=== PATIENT | female | born 1980 | race Caucasian/White ===

== ENCOUNTER → 2019-10-29 09:30 | Outpatient (CLI) | payer OTHER, SELFPAY ==
--- NOTE | 2019-10-29 09:34 | DI.MG.S_ITS ---
BILATERAL DIGITAL SCREENING MAMMOGRAM 3D/2D WITH CAD: 10/29/2019 CLINICAL: Baseline exam. Routine screening. Family history of breast cancer. No prior exams were available for comparison. The tissue of both breasts is heterogeneously dense. This may lower the sensitivity of mammography. Current study was also evaluated with a Computer Aided Detection (CAD) system. There are two round asymmetries in the left breast middle depth central to the nipple seen on the mediolateral oblique view only. No other significant masses, calcifications, or other findings are seen in either breast. IMPRESSION: INCOMPLETE: NEEDS ADDITIONAL IMAGING EVALUATION The two round asymmetries in the left breast are indeterminate. A diagnostic mammogram and ultrasound is recommended. This exam was interpreted at Station ID: [id number]. NOTE: For mammograms, a report in lay terms will be sent to the patient. Approximately 15% of breast malignancies will not be visualized mammographically. In the management of a palpable breast mass, a negative mammogram must not discourage biopsy of a clinically suspicious lesion. Electronically Signed By: Suze garcia/:10/29/2019 10:11:19 letter sent: Additional Imaging Needed ACR BI-RADS Category 0: Incomplete 3340F
== END ==
PROVIDERS: Family Provider Family Medicine; PCP Family Medicine; Referring Provider Family Medicine; Visit Provider Family Medicine
DX: Z13.21 Encounter for screening for nutritional disorder (principal); Z80.3 Family history of malignant neoplasm of breast
CPT/HCPCS: 77063; 77067

== ENCOUNTER → 2019-11-15 10:13 | Outpatient (CLI) | payer OTHER, SELFPAY ==
--- NOTE | 2019-11-15 | DI.MG.S_ITS ---
UNILATERAL LEFT DIGITAL DIAGNOSTIC MAMMOGRAM 3D/2D WITH ADDITIONAL VIEWS: 11/15/2019 CLINICAL: Additional evaluation requested from prior study. Comparison is made to exam dated: 10/29/2019 mammogram - [facility]. The tissue of left breast is heterogeneously dense. This may lower the sensitivity of mammography. The 2 oval asymmetries with indistinct margins in the left breast middle depth central to the nipple seen on the mediolateral oblique view only are not seen on additional views. No other significant masses or calcifications are seen in the breast. IMPRESSION: There is no mammographic evidence of malignancy. A 1 year screening mammogram is recommended. This exam was interpreted at Station ID: [id number]. NOTE: For mammograms, a report in lay terms will be sent to the patient. Approximately 15% of breast malignancies will not be visualized mammographically. In the management of a palpable breast mass, a negative mammogram must not discourage biopsy of a clinically suspicious lesion. Electronically Signed By: John Bailey M.D. ddp/:11/15/2019 10:55:09 letter sent: Normal Exam ACR BI-RADS Category 2: Benign Finding(s) 3342F
== END ==
PROVIDERS: Family Provider Family Medicine; PCP Family Medicine; Referring Provider Family Medicine; Visit Provider Family Medicine
DX: R92.8 Other abnormal and inconclusive findings on diagnostic imaging of breast (principal)
CPT/HCPCS: 77065; G0279

== ENCOUNTER → 2020-02-13 12:13 | Outpatient (CLI) | payer OTHER, SELFPAY ==
--- NOTE | 2020-02-13 | DI.CT.S_ITS ---
PROCEDURE: CT SINUS SCREEN WO CON INDICATIONS: Chronic sinusitis TECHNIQUE: Noncontrast 3.0 mm axial images acquired from the frontal sinuses to the mid-sella, with coronal and sagittal reformats. For radiation dose reduction, the following was used: automated exposure control, adjustment of mA and/or kV according to patient size. COMPARISON: None. FINDINGS: Image quality: Excellent. Maxillary Sinuses: No bony remodeling or destruction. Sinuses are clear. Ethmoid Air Cells: No bony remodeling or destruction. Sinuses are clear. Sphenoid Sinuses: No bony remodeling or destruction. Sinuses are clear. Frontal Sinuses: No bony remodeling or destruction. Sinuses are clear. Ostiomeatal Complexes: Ostiomeatal complexes are patent, yet they are constitutionally narrowed. No Jennyfer cells. Miscellaneous: Visualized intra-orbital contents are normal. No logan bullosa or paradoxical turbinate curvature. There is minimal S-shaped nasal septal deviation. IMPRESSION: No significant active paranasal sinus disease is seen. No bony changes are seen to suggest chronic sinusitis. Constitutionally narrowed ostiomeatal complexes. Minimal S-shaped nasal septal deviation. Dictated by: Delonte Alvarez M.D. on 02/13/2020 at 12:15 Approved by: Delonte Alvarez M.D. on 02/13/2020 at 12:16
== END ==
PROVIDERS: Family Provider Family Medicine; PCP Family Medicine; Referring Provider Family Medicine; Visit Provider Family Medicine
DX: J32.9 Chronic sinusitis, unspecified (principal)
CPT/HCPCS: 70486

== ENCOUNTER → 2020-03-12 17:59 | Outpatient (CLI) | payer OTHER, SELFPAY ==
--- NOTE | 2020-03-12 18:01 | DI.MRI.S_ITS ---
PROCEDURE: MR HEAD/BRAIN WO CON INDICATIONS: HEADACHE TECHNIQUE: Noncontrast axial T1 spin echo, axial T2 fast spin echo, sagittal and axial FLAIR, coronal T2 fast spin echo, axial gradient echo, axial diffusion and ADC through the brain. COMPARISON: None. FINDINGS: Image quality: Excellent. CSF Spaces: Basal cisterns are patent. No extra-axial fluid collections. Ventricles are normal in size and shape. Brain: No intracranial masses or hemorrhage. Lowery/white matter interface is normal. Brainstem appears normal. Diffusion-weighted images demonstrate no acute ischemic insult. No chronic ischemic insults. Normal intravascular flow voids are present. Skull and face: Calvarium has normal marrow signal. Orbits appear normal. Sinuses: Sinuses and mastoids are clear. IMPRESSION: 1. No intracranial disease process. 2. No abnormal intracranial mass or mass effect. 3. No abnormal intracranial signal. Dictated by: Sabi Rivero MD, PhD on 03/13/2020 at 12:59 Approved by: Sabi Rivero MD, PhD on 03/13/2020 at 13:01
== END ==
PROVIDERS: Family Provider Family Medicine; PCP Family Medicine; Referring Provider Psychiatry & Neurology Neurology; Visit Provider Psychiatry & Neurology Neurology
DX: R51 Headache (principal)
CPT/HCPCS: 70551

== ENCOUNTER 2020-03-12 18:57 | Emergency (ER) | payer OTHER, SELFPAY ==
[2020-03-12 19:04] VITALS: BP 109/69; PULSE 79; RESP 18; TEMP 36.2; O2SAT 98; BMI 23.0
--- NOTE | 2020-03-12 19:25 | ED.HA ---
HPI - Headache General Chief Complaint: Headache Stated Complaint: RIGHT SIDE REALLY BAD HEADACHE Time Seen by Provider: 03/12/20 19:02 Mode of arrival: Ambulatory Limitations: no limitations Related Data Home Medications Medication Instructions Recorded Confirmed ibuprofen 800 mg PO TID #0 04/14/11 Allergies Allergy/AdvReac Type Severity Reaction Status Date / Time No Known Allergies Allergy Uncoded 12/09/17 11:53 Patient History Social History Smoking Status: Never smoker Smoking Status: Never smoker alcohol intake frequency: a few times a week Substance Use Type: does not use Exam Initial Vital Signs Initial Vital Signs: Vital Signs Temperature 97.2 F L 03/12/20 19:04 Pulse Rate 79 03/12/20 19:04 Respiratory Rate 18 03/12/20 19:04 Blood Pressure 109/69 03/12/20 19:04 Pulse Oximetry 98 03/12/20 19:04 Course Vital Signs Vital signs: Vital Signs - 8 hr 03/12/20 19:04 Temperature 97.2 F L Pulse Rate 79 Respiratory Rate 18 Blood Pressure 109/69 Pulse Oximetry 98 Discharge Plan Departure Prescriptions: No Action ibuprofen 800 MG tablet 800 mg PO TID Qty: 0 RF: 0
[2020-03-12] MEDS: SODIUM CHLORIDE 0.9% 1,000 ML 1000 ML IV (19:59)
[2020-03-12] MEDS: METOCLOPRAMIDE 10 MG/2 ML INJ IV (20:00)
[2020-03-12] MEDS: KETOROLAC 60 MG/2 ML VIAL 30 MG IV (20:00)
[2020-03-12] MEDS: diphenhydrAMINE 50 MG/ML VIAL IV (20:00)
--- NOTE | 2020-03-12 20:16 | ED.HA ---
HPI - Headache <MADELINE Yo - Last Filed: 03/12/20 21:03> General Chief Complaint: Headache Stated Complaint: RIGHT SIDE REALLY BAD HEADACHE Time Seen by Provider: 03/12/20 19:02 Source: patient Mode of arrival: Ambulatory Limitations: no limitations History of Present Illness HPI Narrative: The patient is a 40-year-old female nonsmoker with history of migraines who presents with a chief complaint of right-sided headache. She states this is been waxing and waning over the past several days, photophobia, phonophobia with nausea but no vomiting. She has not taken anything to feel better. She does note that she had a MRI of her brain here today. She was given a pack of steroids for headache, which she did not start. She notes that she had no thunderclap sensation, headache onset was gradual. No fevers. She states that this is a normal headache for her. She denies any confusion, visual issues etcetera Related Data Home Medications Medication Instructions Recorded Confirmed ibuprofen 800 mg PO TID #0 04/14/11 Allergies Allergy/AdvReac Type Severity Reaction Status Date / Time No Known Allergies Allergy Uncoded 12/09/17 11:53 Review of Systems <MADELINE Yo - Last Filed: 03/12/20 21:03> Review of Systems Narrative: GENERAL: Denies chills, fatigue, malaise, fever, sweats. HEENT: Denies sinus pain, ear pain, sore throat, difficulty swallowing, dizziness. RESPIRATORY: Denies dyspnea, cough, wheezing, hemoptysis, sputum. CARDIOVASCULAR: Denies chest pain, palpitations, orthopnea, edema, GASTROINTESTINAL: Denies nausea, vomiting, abdominal pain, diarrhea, constipation, melena. : Denies dysuria, frequency, incontinence, hematuria, urinary retention. MUSCULOSKELETAL: denies weakness, joint pain, or bony pain SKIN: Denies rash, skin lesions, or other NEUROLOGIC: See HPI PSYCHIATRIC: No concerning psychosocial issues. 12 point review of systems is negative except for those stated above Patient History <MADELINE Yo - Last Filed: 03/12/20 21:03> Social History Smoking Status: Never smoker Smoking Status: Never smoker alcohol intake frequency: a few times a week Substance Use Type: does not use Exam <MADELINE Yo - Last Filed: 03/12/20 21:03> Narrative Exam Narrative: GENERAL: This is a well-nourished, well-developed patient, in no acute distress but appears uncomfortable HEAD: Atraumatic. Normocephalic. No temporal or scalp tenderness. EYES: Pupils equal round and reactive. Extraocular motions intact. No scleral icterus. No injection or drainage. ENT: Nose without bleeding, purulent drainage or septal hematoma. Throat without erythema, tonsillar hypertrophy or exudate. Uvula midline. Airway patent. NECK: Trachea midline. No JVD or lymphadenopathy. Supple, nontender, no meningeal signs. CARDIOVASCULAR: Regular rate and rhythm RESPIRATORY: Clear to auscultation. Breath sounds equal bilaterally. No wheezes, rales, or rhonchi. No cough. No increased respiratory effort. No accessory muscle use. GASTROINTESTINAL: Abdomen soft, non-tender, nondistended. No hepato-splenomegaly, or palpable masses. No guarding. Active bowel sounds all 4 quadrants EXTREMITIES: No clubbing, cyanosis, or edema. No joint tenderness, effusion, or edema noted. BACK: Nontender without deformity or crepitance. No flank tenderness. NEURO: AOx3. Denies visual deficit. Follows commands. Stable gait. Strength is equal upper and lower extremities bilaterally. Heel-nguyen test intact. Finger-nose test intact. SKIN: No rash or erythema on visible skin. Initial Vital Signs Initial Vital Signs: Vital Signs Temperature 97.2 F L 03/12/20 19:04 Pulse Rate 79 03/12/20 19:04 Respiratory Rate 18 03/12/20 19:04 Blood Pressure 109/69 03/12/20 19:04 Pulse Oximetry 98 03/12/20 19:04 <Jose Ramon Diez DO - Last Filed: 03/13/20 01:37> Initial Vital Signs Initial Vital Signs: Vital Signs Temperature 97.2 F L 03/12/20 19:04 Pulse Rate 79 03/12/20 19:04 Respiratory Rate 18 03/12/20 19:04 Blood Pressure 109/69 03/12/20 19:04 Pulse Oximetry 98 03/12/20 19:04 Scores <MADELINE Yo - Last Filed: 03/12/20 21:03> GCS [place] coma scale eye opening: Spontaneous [place] coma scale verbal response: Orientated Tesha coma scale motor response: Obey commands Tesha coma scale total score: 15 NIH Stroke Scale Level of Conciousness: Alert, keenly responsive Ask month/age: Answers both questions correctly. Open/close eyes, close hand: Performs both tasks correctly Best gaze horizontal: Normal Visual cui: No visual loss Facial palsy: Normal symetrical movement Left arm drift: No drift for full 10 sec Right arm drift: No drift for full 10 sec Left leg drift: No drift for full 10 sec Right leg drift: No drift for full 10 sec Limb ataxia: Absent Sensory on face/arms/legs: Normal, no sensory loss Best language: No aphasia, normal Dysarthria: Normal Extinction or inattention: No abnormality Total NIH Stroke scale score: 0 Course <JUAN ANTONIO Yo - Last Filed: 03/12/20 21:03> Orders Ordered: Discontinued Medications Diphenhydramine HCl (Benadryl) 50 mg IV NOW ONE Stop: 03/12/20 19:50 Last Admin: 03/12/20 20:00 Dose: 50 mg Documented by: CHARLY Sodium Chloride (Normal Saline 0.9%) 1,000 mls @ 1,000 mls/hr IV BOLUS ONE Stop: 03/12/20 20:48 Last Infusion: 03/12/20 21:10 Dose: 0 mls/hr Documented by: Admin: 03/12/20 19:59 Dose: 1,000 mls/hr Documented by: CHARLY Ketorolac Tromethamine (Toradol) 30 mg IV NOW ONE Stop: 03/12/20 19:50 Last Admin: 03/12/20 20:00 Dose: 30 mg Documented by: CHARLY Metoclopramide HCl (Reglan) 10 mg IV NOW ONE Stop: 03/12/20 19:50 Last Admin: 03/12/20 20:00 Dose: 10 mg Documented by: CHARLY Vital Signs Vital signs: Vital Signs - 8 hr 03/12/20 19:04 03/12/20 21:10 Temperature 97.2 F L Pulse Rate 79 78 Respiratory Rate 18 14 Blood Pressure 109/69 106/61 Pulse Oximetry 98 99 <Jose Ramon Diez DO - Last Filed: 03/13/20 01:37> Orders Ordered: Discontinued Medications Diphenhydramine HCl (Benadryl) 50 mg IV NOW ONE Stop: 03/12/20 19:50 Last Admin: 03/12/20 20:00 Dose: 50 mg Documented by: CHARLY Sodium Chloride (Normal Saline 0.9%) 1,000 mls @ 1,000 mls/hr IV BOLUS ONE Stop: 03/12/20 20:48 Last Infusion: 03/12/20 21:10 Dose: 0 mls/hr Documented by: Admin: 03/12/20 19:59 Dose: 1,000 mls/hr Documented by: CHARLY Ketorolac Tromethamine (Toradol) 30 mg IV NOW ONE Stop: 03/12/20 19:50 Last Admin: 03/12/20 20:00 Dose: 30 mg Documented by: CHARLY Metoclopramide HCl (Reglan) 10 mg IV NOW ONE Stop: 03/12/20 19:50 Last Admin: 03/12/20 20:00 Dose: 10 mg Documented by: CHARLY Vital Signs Vital signs: Vital Signs - 8 hr 03/12/20 19:04 03/12/20 21:10 Temperature 97.2 F L Pulse Rate 79 78 Respiratory Rate 18 14 Blood Pressure 109/69 106/61 Pulse Oximetry 98 99 MDM - Headache <MADELINE Yo - Last Filed: 03/12/20 21:03> Lab Data Labs: Point of Care Testing Test Results Negative Urine Dip Bedside Urine Glucose Negative Bedside Urine Bilirubin - Negative Bedside Urine Ketone +/- 5 Urine Specific [place] 1.025 Bedside Urine Occult Blood + Bedside Urine pH 6.0 Bedside Urine Protein - Negative Bedside Urine Urobilinogen - Negative Bedside Urine Nitrite - Negative Bedside Urine Leukocytes - Negative Esterase MDM Narrative Medical decision making narrative: The patient is a 40-year-old female with history of migraines who presents with a chief complaint of a right-sided headache that has been waxing waning for the past several days. The onset was gradual, no thunderclap sensation, no neurological changes. She feels much improved after the above-stated therapies request to go home and sleep. I discussed at length the importance of following up with primary care provider coming back to the emergency department for any acute concerns. Patient has no questions or concerns upon discharge and states understanding of return precautions as well as follow-up care. <Jose Ramon Diez DO - Last Filed: 03/13/20 01:37> Lab Data Labs: Point of Care Testing Test Results Negative Urine Dip Bedside Urine Glucose Negative Bedside Urine Bilirubin - Negative Bedside Urine Ketone +/- 5 Urine Specific [place] 1.025 Bedside Urine Occult Blood + Bedside Urine pH 6.0 Bedside Urine Protein - Negative Bedside Urine Urobilinogen - Negative Bedside Urine Nitrite - Negative Bedside Urine Leukocytes - Negative Esterase Discharge Plan Departure Patient Disposition: Home Clinical Impression: Headache Qualifiers: Headache type: unspecified Headache chronicity pattern: unspecified pattern Intractability: not intractable Qualified Code(s): R51 - Headache Discharge Date/Time: 03/12/20 21:19 Instructions: DI for Migraine, DI for Headache Activity Restrictions/Additional Instructions: Thank you for trusting us with your care today Please go home rest. Push fluids. Please follow-up with primary care provider in the next few days. Please come back to the emergency department for any acute concerns such as neurological changes etcetera Prescriptions: No Action ibuprofen 800 MG tablet 800 mg PO TID Qty: 0 RF: 0 Referrals: Joelle Patterson MD [Primary Care Provider] - <Jose Ramon Diez DO - Last Filed: 03/13/20 01:37> Cosign ED Attending Cosignature Attestation: I was immediately available in the department for consultation. This documentation has been reviewed and I agree with assessment and plan. Supervised by Jose Ramon Diez DO
[2020-03-12 21:10] VITALS: BP 106/61; PULSE 78; RESP 14; O2SAT 99
== END 2020-03-12 21:19 | disposition home or self-care (01) ==
PROVIDERS: Emergency Provider Nurse Practitioner Family; Family Provider Family Medicine; PCP Family Medicine
DX: R51 Headache (principal)
CPT/HCPCS: 36415; 70551; 81003; 81025; 96361; 96374; 96375; 99284; J1200; J1885; J2765

== ENCOUNTER → 2020-11-07 10:42 | Outpatient (CLI) | payer OTHER, SELFPAY ==
--- NOTE | 2020-11-07 10:45 | DI.MG.S_ITS ---
BILATERAL DIGITAL SCREENING MAMMOGRAM 3D/2D WITH CAD: 11/07/2020 CLINICAL: Routine screening. Family history of breast cancer. Comparison is made to exams dated: 11/15/2019 mammogram and 10/29/2019 mammogram - [facility]. The tissue of both breasts is heterogeneously dense. This may lower the sensitivity of mammography. Current study was also evaluated with a Computer Aided Detection (CAD) system. No significant masses, calcifications, or other findings are seen in either breast. There has been no significant interval change. IMPRESSION: NEGATIVE There is no mammographic evidence of malignancy. A 1 year screening mammogram is recommended. This exam was interpreted at Station ID: [id number]. NOTE: For mammograms, a report in lay terms will be sent to the patient. Approximately 15% of breast malignancies will not be visualized mammographically. In the management of a palpable breast mass, a negative mammogram must not discourage biopsy of a clinically suspicious lesion. Electronically Signed By: John castillo/jessica:11/07/2020 11:11:47 letter sent: Normal Exam ACR BI-RADS Category 1: Negative 3341F
== END ==
PROVIDERS: Family Provider Family Medicine; PCP Family Medicine; Referring Provider Family Medicine; Visit Provider Family Medicine
DX: Z12.31 Encounter for screening mammogram for malignant neoplasm of breast (principal); Z80.3 Family history of malignant neoplasm of breast
CPT/HCPCS: 77063; 77067

== ENCOUNTER → 2022-01-14 15:14 | Outpatient (CLI) | payer OTHER, SELFPAY ==
--- NOTE | 2022-01-14 | DI.MG.S_ITS ---
BILATERAL DIGITAL SCREENING MAMMOGRAM 3D/2D WITH CAD: 01/14/2022 CLINICAL: Routine screening. Family history of breast cancer. Comparison is made to exams dated: 11/07/2020 mammogram, 11/15/2019 mammogram, and 10/29/2019 mammogram - [facility]. The tissue of both breasts is heterogeneously dense. This may lower the sensitivity of mammography. Current study was also evaluated with a Computer Aided Detection (CAD) system. No significant masses, calcifications, or other findings are seen in either breast. There has been no significant interval change. IMPRESSION: NEGATIVE There is no mammographic evidence of malignancy. A 1 year screening mammogram is recommended. This exam was interpreted at Station ID: [id number]. NOTE: For mammograms, a report in lay terms will be sent to the patient. Approximately 15% of breast malignancies will not be visualized mammographically. In the management of a palpable breast mass, a negative mammogram must not discourage biopsy of a clinically suspicious lesion. Electronically Signed By: Russell almonte/jessica:01/15/2022 08:15:29 letter sent: Normal Exam ACR BI-RADS Category 1: Negative 3341F
== END ==
PROVIDERS: Family Provider Family Medicine; PCP Family Medicine; Referring Provider Family Medicine; Visit Provider Family Medicine
DX: Z12.31 Encounter for screening mammogram for malignant neoplasm of breast (principal); Z80.3 Family history of malignant neoplasm of breast
CPT/HCPCS: 77063; 77067

== ENCOUNTER → 2023-01-16 14:18 | Outpatient (CLI) | payer OTHER, SELFPAY ==
--- NOTE | 2023-01-16 | DI.MG.S_ITS ---
BILATERAL DIGITAL SCREENING MAMMOGRAM 3D/2D WITH CAD: 01/16/2023 CLINICAL: Routine screening. Family history of breast cancer. Comparison is made to exams dated: 01/14/2022 mammogram, 11/07/2020 mammogram, and 10/29/2019 mammogram - [facility]. Both breasts are heterogeneously dense, which may obscure small masses (category c / 51-75% glandular tissue). Current study was also evaluated with a Computer Aided Detection (CAD) system. No significant masses, calcifications, or other findings are seen in either breast. There has been no significant interval change. IMPRESSION: NEGATIVE There is no mammographic evidence of malignancy. A 1 year screening mammogram is recommended. Based on Tyrer-Cuzick model (a risk assessment model), the patient's lifetime risk is 25.9% and her 10 year risk is 4.9%. If a patient has an elevated risk, a more comprehensive evaluation should be considered and/or a referral to a genetic counselor. The [place] [employer], [place] [employer], and NCCN Guidelines advise the consideration of Breast MRI as an adjunct to screening mammography in patients whose Lifetime risk to develop breast cancer is 20% or higher. This exam was interpreted at Station ID: [id number]. NOTE: For mammograms, a report in lay terms will be sent to the patient. Approximately 15% of breast malignancies will not be visualized mammographically. In the management of a palpable breast mass, a negative mammogram must not discourage biopsy of a clinically suspicious lesion. Electronically Signed By: Valentin roberts/jessica:01/16/2023 15:04:25 letter sent: Normal Exam ACR BI-RADS Category 1: Negative 3341F
== END ==
PROVIDERS: Family Provider Family Medicine; PCP Family Medicine; Referring Provider Family Medicine; Visit Provider Family Medicine
DX: Z12.31 Encounter for screening mammogram for malignant neoplasm of breast (principal); Z80.3 Family history of malignant neoplasm of breast
CPT/HCPCS: 77063; 77067

== ENCOUNTER 2023-05-21 14:04 | Emergency (ER) | payer OTHER, SELFPAY ==
[2023-05-21 14:12] VITALS: BP 120/59; PULSE 77; RESP 16; TEMP 36.6; O2SAT 100; BMI 23.0
[2023-05-21 14:27] LABS: Pregnancy Test Urine Negative (Negative)
[2023-05-21 14:38] LABS: Appearance Urine UA CLEAR; Bacteria Urine Few (2-10); Color Urine UA ORANGE; Culture Indicated Urine Specimen Cultured; RBC Urine 10-30/HPF (0-5/HPF); Squamous Epithelial Cell Urine 0-1 /HPF (0-5/HPF); WBC Urine 5-10/HPF (0-5/HPF)
[2023-05-21 17:04] VITALS: BP 114/67; PULSE 77; RESP 16; TEMP 37.1; O2SAT 99
--- NOTE | 2023-05-21 17:12 | ED.FEMALEGU ---
HPI - Female Genitourinary <Joelle Frye PA-C - Last Filed: 05/21/23 19:18> General Chief complaint: Urogenital-Female Stated complaint: poss UTI going into kidneys Time Seen by Provider: 05/21/23 17:00 Source: patient Mode of arrival: Ambulatory History of Present Illness HPI Narrative: Patient is a 43-year-old female with several days of dysuria, frequency and urgency. Yesterday she developed low back pain. She has no fever or chills, she was nauseous and vomited once yesterday. She is been drinking a lot of water and taking puvr-jtc-[id number] pain medication for dysuria. She is not noticed any hematuria. She has a history of kidney stones 19 years ago and fairly frequent urinary tract infections. Related Data Home Medications Medication Instructions Recorded Confirmed ibuprofen 800 mg tablet 800 mg PO TID ##0 04/14/11 Previous Rx's Medication Instructions Recorded ciprofloxacin HCl 500 mg tablet 500 mg PO BID #14 tabs 05/21/23 Allergies Allergy/AdvReac Type Severity Reaction Status Date / Time No Known Allergies Allergy Verified 05/21/23 17:40 Review of Systems <Joelle Frye PA-C - Last Filed: 05/21/23 19:18> Review of Systems ROS Unobtainable: All systems reviewed & are unremarkable except as noted in HPI and below Patient History <Joelle Frye PA-C - Last Filed: 05/21/23 19:18> alcohol intake frequency: a few times a week Substance Use Type: does not use Exam <ALEA Muro Last Filed: 05/21/23 19:18> Narrative Exam Narrative: GENERAL: 43 year old patient appears stated age. Well-developed patient, in mild distress. NEURO: AOx3. HEAD: Atraumatic. Normocephalic. EYES: Pupils equal round and reactive. Extraocular motions intact. No scleral icterus. No injection or drainage. ENT: Nose without bleeding or purulent drainage. Airway patent. RESPIRATORY: No distress GASTROINTESTINAL: Abdomen soft, non-tender, nondistended. Positive bilateral CVA tenderness, right greater than left. EXTREMITIES: No edema or joint tenderness. SKIN: No rash or erythema of visible areas Initial Vital Signs Initial Vital Signs: Vital Signs Temperature 97.8 F 05/21/23 14:12 Pulse Rate 77 09/21/23 14:12 Respiratory Rate 16 05/21/23 14:12 Blood Pressure 120/59 L 05/21/23 14:12 Pulse Oximetry 100 05/21/23 14:12 Oxygen Delivery Method Room Air 05/21/23 14:12 <Feng Bowers MD - Last Filed: 06/05/23 08:40> Initial Vital Signs Initial Vital Signs: Vital Signs Temperature 97.8 F 05/21/23 14:12 Pulse Rate 77 05/21/23 14:12 Respiratory Rate 16 05/21/23 14:12 Blood Pressure 120/59 L 05/21/23 14:12 Pulse Oximetry 100 05/21/23 14:12 Oxygen Delivery Method Room Air 05/21/23 14:12 Course <Joelle Frye PA-C - Last Filed: 05/21/23 19:18> Course Course Narrative: I initially evaluated patient at which point she was a little uncomfortable but declined pain medication. She wanted antibiotics and to go home. Shortly after, nurse came to find me and said patient was in significant right flank pain. I went directly to the room at 1737 and found patient to be kneeling on the floor, crying. Decision made to alter plan of care; we will start an IV, check labs give pain medication and obtain CT scan to evaluate for kidney stone. Pain controlled with Toradol and hydromorphone. CT scan of abdomen pelvis with contrast completed, please see below Orders Ordered: Discontinued Medications Ceftriaxone Sodium (Ceftriaxone 2,000 Mg Vial) 1,000 mg IM NOW ONE Stop: 05/21/23 17:07 Last Admin: 05/21/23 17:35 Dose: 1,000 mg Documented By: ST Hydromorphone HCl (Hydromorphone 0.5 Mg Inj) 0.5 mg IV NOW ONE Stop: 05/21/23 17:40 Last Admin: 05/21/23 17:47 Dose: 0.5 mg Documented By: ST Ketorolac Tromethamine (Ketorolac 30 Mg/Ml Vial) 15 mg IV NOW ONE Stop: 05/21/23 17:36 Last Admin: 05/21/23 17:47 Dose: 15 mg Documented By: ST Lidocaine HCl (Lidocaine 1% (Pf) 5 Ml) 4.2 ml INJ NOW ONE Stop: 05/21/23 17:07 Last Admin: 05/21/23 17:36 Dose: Not Given Documented By: ST Ondansetron HCl (Ondansetron 4 Mg/2 Ml Inj) 4 mg IV NOW ONE Stop: 05/21/23 17:41 Last Admin: 05/21/23 17:47 Dose: 4 mg Documented By: ST Vital Signs Vital signs: Vital Signs - 8 hr 05/21/23 14:12 05/21/23 17:04 05/21/23 18:28 Temperature 97.8 F 98.7 F 97.7 F Pulse Rate 77 77 76 Respiratory Rate 16 16 18 Blood Pressure 120/59 L 114/67 109/53 L Pulse Oximetry 100 99 98 Oxygen Delivery Method Room Air Room Air Room Air 05/21/23 18:55 Temperature 98.2 F Pulse Rate 77 Respiratory Rate 17 Blood Pressure 95/52 L Pulse Oximetry 100 Oxygen Delivery Method Room Air <Feng Bowers MD - Last Filed: 06/05/23 08:40> Orders Ordered: Discontinued Medications Ceftriaxone Sodium (Ceftriaxone 2,000 Mg Vial) 1,000 mg IM NOW ONE Stop: 05/21/23 17:07 Last Admin: 05/21/23 17:35 Dose: 1,000 mg Documented By: Hydromorphone HCl (Hydromorphone 0.5 Mg Inj) 0.5 mg IV NOW ONE Stop: 05/21/23 17:40 Last Admin: 05/21/23 17:47 Dose: 0.5 mg Documented By: Ketorolac Tromethamine (Ketorolac 30 Mg/Ml Vial) 15 mg IV NOW ONE Stop: 05/21/23 17:36 Last Admin: 05/21/23 17:47 Dose: 15 mg Documented By: ST Lidocaine HCl (Lidocaine 1% (Pf) 5 Ml) 4.2 ml INJ NOW ONE Stop: 05/21/23 17:07 Last Admin: 05/21/23 17:36 Dose: Not Given Documented By: ST Ondansetron HCl (Ondansetron 4 Mg/2 Ml Inj) 4 mg IV NOW ONE Stop: 05/21/23 17:41 Last Admin: 05/21/23 17:47 Dose: 4 mg Documented By: ST Vital Signs Vital signs: Vital Signs - 8 hr 05/21/23 14:12 05/21/23 17:04 05/21/23 18:28 Temperature 97.8 F 98.7 F 97.7 F Pulse Rate 77 77 76 Respiratory Rate 16 16 18 Blood Pressure 120/59 L 114/67 109/53 L Pulse Oximetry 100 99 98 Oxygen Delivery Method Room Air Room Air Room Air 05/21/23 18:55 Temperature 98.2 F Pulse Rate 77 Respiratory Rate 17 Blood Pressure 95/52 L Pulse Oximetry 100 Oxygen Delivery Method Room Air MDM - Female Genitourinary <Joelle Frye PA-C - Last Filed: 05/21/23 19:18> Lab Data 05/21/23 17:54 05/21/23 17:54 Labs: Lab Results 05/21/23 05/21/23 Range/Units 14:12 17:54 WBC 16.9 H (4.5-11.0) X10^3/uL RBC 4.00 (4.0-5.2) X10^6/uL Hgb 12.0 (12.0-16.0) g/dL Hct 35.4 L (36-46) % MCV 88.4 (80-100) fL MCH 30.1 (26-34) PG MCHC 34.0 (30-36) % RDW 12.3 (11.6-14.8) % Plt Count 369 (150-400) X10^3/uL Neut % (Auto) 75.8 H (50-75) % Lymph % (Auto) 18.4 L (25-40) % [place] % (Auto) 4.8 (3-14) % Eos % (Auto) 0.4 L (2-4) % Baso % (Auto) 0.6 (0-2) % Neut # (Auto) 24775 H (9425-2632) /uL Lymph # (Auto) 3100 (4096-0172) /uL [place] # (Auto) 800 (0-900) /uL Eos # (Auto) 100 (0-450) /uL Baso # (Auto) 100 (0-100) /uL Sodium 135 L (137-145) mmol/L Potassium 3.8 (3.4-5.1) mmol/L Chloride 101 (98-107) mmol/L Carbon Dioxide 24 (22-32) mmol/L BUN 9 (7-17) mg/dL Creatinine 0.77 (0.52-1.04) mg/dL Estimated GFR > 60 (>60) mL/min BUN/Creatinine Ratio 11.7 (6-22) Glucose 110 H (70-100) mg/dL Calcium 9.8 (8.4-10.2) mg/dL Urine Color [place] Urine Appearance Clear Urine pH TNP Ur Specific [place] TNP Urine Protein TNP Urine Glucose (UA) TNP Urine Ketones TNP Urine Occult Blood TNP Urine Nitrate TNP Urine Bilirubin TNP Urine Urobilinogen TNP Ur Leukocyte Esterase TNP Urine RBC 10-30/hpf H (0-5/HPF) Urine WBC 5-10/hpf H (0-5/HPF) Ur Squamous Epith Cells 0-1 /hpf (0-5/HPF) Urine Bacteria Few (2-10) H (None) Ur Culture Indicated? Specimen cultured Micro UA Comment Urine Test Negative (Negative) Imaging Data CT scan - abdomen/pelvis: Radiologist's Impression: PROCEDURE:? CT ABDOMEN PELVIS W CON ? INDICATIONS:? flank pain ? TECHNIQUE:? After the administration of intravenous contrast, axial sections acquired from the lung bases to the pubic symphysis.? Coronal and sagittal reformats were performed.? For radiation dose reduction, the following was used:? automated exposure control, adjustment of mA and/or kV according to patient size.? ? COMPARISON:? None. ? FINDINGS:? Image quality:? Excellent.? ? Lung bases:? Unremarkable. Heart:? No significant findings. ? ABDOMEN: Liver:? Unremarkable.? ? Gallbladder:? Unremarkable.? ? Biliary ducts:? Unremarkable.? ? Pancreas:? Unremarkable.? ? Spleen:? Unremarkable.? ? Adrenal Glands:? Unremarkable.? ? Kidneys and Ureters:? There is mild dilatation and wall thickening of the right ureter.? The kidneys enhance symmetrically without evidence of kidney stone or hydronephrosis. ? Stomach and Bowel:? Stomach, small bowel loops, and colon are unremarkable.? Peritoneum:? No abnormal intraperitoneal fluid.? No free air.? ? Ventral Wall: ? No hernias.? Abdominal Nodes:? No retroperitoneal or mesenteric adenopathy by size criteria.? Vessels:? Aorta and inferior vena cava are normal in size.? ? PELVIS: Pelvic Organs:? Unremarkable.? ? Bladder:? Decompressed, limiting evaluation..? ? Pelvic Nodes: No enlarged lymph nodes.? Miscellaneous: No hernias are seen.? Possible trace pelvic fluid posterior to the uterus. ?? ? Bones:? Mild degenerative changes. ? ? IMPRESSION:? ? 1. Mild dilatation and wall thickening of the right ureter.? The urinary bladder is decompressed which limits evaluation.? Recommend correlation with urinalysis to exclude cystitis. 2. Possible trace pelvic fluid posterior to the uterus, may be physiologic. ? ? Dictated by: Wicho Montiel M.D. on 05/21/2023 at 18:42 ? ? Approved by: Wicho Montiel M.D. on 05/21/2023 at 18:47 ? MDM Narrative Medical decision making narrative: Multiple etiologies for patient's symptoms considered including, but not limited to: UTI, pyelonephritis, kidney stone, cholecystitis. UA shows evidence of infection but is difficult to interpret given use of pmxa-lbm-ctwczrt pain medication for dysuria. Patient has significant CVA tenderness which is concerning for pyelonephritis. No fever or tachycardia to suggest sepsis. After episode of significant pain, CT abd/pelvis obtained to evaluate for stone. No stone seen. We will continue original plan to treat as pyelonephritis with 1 g IM ceftriaxone and 7 days of ciprofloxacin, chosen for broad-spectrum in the setting of Bactrim not covered by her insurance. No IV fluid indicated today as patient has been tolerating p.o. fluids and has been drinking plenty of water. Patient feels better after pain meds and will a call a ride home. <Feng Bowers MD - Last Filed: 06/05/23 08:40> Lab Data Labs: Lab Results 05/21/23 05/21/23 Range/Units 14:12 17:54 WBC 16.9 H (4.5-11.0) X10^3/uL RBC 4.00 (4.0-5.2) X10^6/uL Hgb 12.0 (12.0-16.0) g/dL Hct 35.4 L (36-46) % MCV 88.4 (80-100) fL MCH 30.1 (26-34) PG MCHC 34.0 (30-36) % RDW 12.3 (11.6-14.8) % Plt Count 369 (150-400) X10^3/uL Neut % (Auto) 75.8 H (50-75) % Lymph % (Auto) 18.4 L (25-40) % [place] % (Auto) 4.8 (3-14) % Eos % (Auto) 0.4 L (2-4) % Baso % (Auto) 0.6 (0-2) % Neut # (Auto) 19952 H (8835-4821) /uL Lymph # (Auto) 3100 (2162-1748) /uL [place] # (Auto) 800 (0-900) /uL Eos # (Auto) 100 (0-450) /uL Baso # (Auto) 100 (0-100) /uL Sodium 135 L (137-145) mmol/L Potassium 3.8 (3.4-5.1) mmol/L Chloride 101 (98-107) mmol/L Carbon Dioxide 24 (22-32) mmol/L BUN 9 (7-17) mg/dL Creatinine 0.77 (0.52-1.04) mg/dL Estimated GFR > 60 (>60) mL/min BUN/Creatinine Ratio 11.7 (6-22) Glucose 110 H (70-100) mg/dL Calcium 9.8 (8.4-10.2) mg/dL Urine Color [place] Urine Appearance Clear Urine pH TNP Ur Specific [place] TNP Urine Protein TNP Urine Glucose (UA) TNP Urine Ketones TNP Urine Occult Blood TNP Urine Nitrate TNP Urine Bilirubin TNP Urine Urobilinogen TNP Ur Leukocyte Esterase TNP Urine RBC 10-30/hpf H (0-5/HPF) Urine WBC 5-10/hpf H (0-5/HPF) Ur Squamous Epith Cells 0-1 /hpf (0-5/HPF) Urine Bacteria Few (2-10) H (None) Ur Culture Indicated? Specimen cultured Micro UA Comment Urine Test Negative (Negative) Discharge Plan Departure Patient Disposition: Home Clinical Impression: Pyelonephritis Instructions: DI for Kidney Infection, DI for Urinary Tract Infection (UTI) Activity Restrictions/Additional Instructions: *You have been diagnosed with pyelonephritis. You were treated with a dose of intramuscular antibiotic in the emergency room and now you will take 7 days of oral antibiotics. Please take all of the antibiotics even if you are feeling better. Continue to drink lots of water. If you are not feeling better after 72 hours of antibiotics, please return to the emergency department for reassessment. If your infection turns out to be resistant to the antibiotics we prescribed, we will call you. *What to do: *Please continue to take your regular medications as directed. [x] New medication prescriptions sent to your pharmacy: [[facility]] [ ] New medication written as a paper prescription [ ] No new medications given *Please follow up with your primary care provider in 2-3 days, call for an appointment. Let them know you were seen in the Emergency Department and that we ask that you be seen in follow up. We will electronically transmit a record of today's note if your PCP is in our system *If you do not have a primary care provider please contact the [facility] Resource line at [phone]. They will ask some questions about your medical history and help get you set up with a doctor in the community. *Return to Emergency Department if you should have any new, worsening or concerning symptoms, such as [fever greater than 101 F, shaking chills, worsening pain, persistent vomiting or other concerning symptoms]. Prescriptions: New ciprofloxacin HCl 500 mg tablet 500 mg PO BID Qty: 14 0RF No Action ibuprofen 800 MG tablet 800 mg PO TID Qty: 0 Referrals: Joelle Patterson MD [Primary Care Provider] - Stand Alone Forms: Patient Portal/API ED Sign-out <Feng Bowers MD - Last Filed: 06/05/23 08:40> [facility]: I was immediately available in the department for consultation. ?This documentation has been reviewed and I agree with assessment and plan. Supervised by Feng Bowers MD
[2023-05-21] MEDS: cefTRIAXone 2,000 MG VIAL 1000 MG IM (17:35)
--- NOTE | 2023-05-21 17:35 | DI.CT.S_ITS ---
PROCEDURE: CT ABDOMEN PELVIS W CON INDICATIONS: flank pain TECHNIQUE: After the administration of intravenous contrast, axial sections acquired from the lung bases to the pubic symphysis. Coronal and sagittal reformats were performed. For radiation dose reduction, the following was used: automated exposure control, adjustment of mA and/or kV according to patient size. COMPARISON: None. FINDINGS: Image quality: Excellent. Lung bases: Unremarkable. Heart: No significant findings. ABDOMEN: Liver: Unremarkable. Gallbladder: Unremarkable. Biliary ducts: Unremarkable. Pancreas: Unremarkable. Spleen: Unremarkable. Adrenal Glands: Unremarkable. Kidneys and Ureters: There is mild dilatation and wall thickening of the right ureter. The kidneys enhance symmetrically without evidence of kidney stone or hydronephrosis. Stomach and Bowel: Stomach, small bowel loops, and colon are unremarkable. Peritoneum: No abnormal intraperitoneal fluid. No free air. Ventral Wall: No hernias. Abdominal Nodes: No retroperitoneal or mesenteric adenopathy by size criteria. Vessels: Aorta and inferior vena cava are normal in size. PELVIS: Pelvic Organs: Unremarkable. Bladder: Decompressed, limiting evaluation.. Pelvic Nodes: No enlarged lymph nodes. Miscellaneous: No hernias are seen. Possible trace pelvic fluid posterior to the uterus. Bones: Mild degenerative changes. IMPRESSION: 1. Mild dilatation and wall thickening of the right ureter. The urinary bladder is decompressed which limits evaluation. Recommend correlation with urinalysis to exclude cystitis. 2. Possible trace pelvic fluid posterior to the uterus, may be physiologic. Dictated by: Wicho Montiel M.D. on 05/21/2023 at 18:42 Approved by: Wicho Montiel M.D. on 05/21/2023 at 18:47
[2023-05-21] MEDS: KETOROLAC 30 MG/ML VIAL 15 MG IV (17:47)
[2023-05-21] MEDS: ONDANSETRON 4 MG/2 ML INJ IV (17:47)
[2023-05-21] MEDS: HYDROMORPHONE 0.5 MG INJ IV (17:47)
[2023-05-21 18:11] LABS: Add Manual Diff / Slide Review NO; Basophils Absolute Auto 100 /uL (0-100); Basophils Percent Auto 0.6 % (0-2); Eosinophils Absolute Auto 100 /uL (0-450); Eosinophils Percent Auto 0.4 % (2-4); Hematocrit 35.4 % (36-46); Lymphocytes Absolute Auto 3100 /uL (1100-4500); Lymphocytes Percent Auto 18.4 % (25-40); Mean Corpuscular Hemoglobin 30.1 PG (26-34); Mean Corpuscular Volume 88.4 fL (80-100); Monocytes Absolute Auto 800 /uL (0-900); Monocytes Percent Auto 4.8 % (3-14); Neutrophils Absolute Auto 12800 /uL (1500-7000); Neutrophils Percent Auto 75.8 % (50-75); Platelet Count 369 X10^3/uL (150-400); Red Cell Distribution Width 12.3 % (11.6-14.8); White Blood Cell Count 16.9 X10^3/uL (4.5-11.0)
[2023-05-21 18:19] LABS: BUN Creatinine Ratio 11.7 (6-22); Blood Urea Nitrogen 9 mg/dL (7-17); Calcium 9.8 mg/dL (8.4-10.2); Carbon Dioxide 24 mmol/L (22-32); Chloride 101 mmol/L (98-107); Estimated Glomerular Filt Rate > 60 mL/min (>60); Glucose 110 mg/dL (70-100); HEMOLYSIS < 15 (0-50); Potassium 3.8 mmol/L (3.4-5.1); Sodium 135 mmol/L (137-145)
[2023-05-21 18:28] VITALS: BP 109/53; PULSE 76; RESP 18; TEMP 36.5; O2SAT 98
[2023-05-21 18:55] VITALS: BP 95/52; PULSE 77; RESP 17; TEMP 36.8; O2SAT 100
--- NOTE | 2023-05-21 18:55 | PC.NURSE ---
BP 95/52. Provider English WINN notified. No new orders.
[2023-05-21 19:28] VITALS: BP 105/55; PULSE 91; RESP 16; O2SAT 98
== END 2023-05-21 19:29 | disposition home or self-care (01) ==
PROVIDERS: Emergency Medicine; Physician Assistant; Emergency Provider Emergency Medicine; Family Provider Family Medicine; PCP Family Medicine
DX: N12 Tubulo-interstitial nephritis, not specified as acute or chronic (principal); M54.50 Low back pain, unspecified
CPT/HCPCS: 36415; 74177; 80048; 81001; 81025; 85025; 87077; 87086; 87186; 96372; 96374; 96375; 99284; J0696; J1170; J1885; J2405; Q9967

== ENCOUNTER → 2024-02-04 14:22 | Outpatient (CLI) | payer OTHER, SELFPAY ==
--- NOTE | 2024-02-04 14:23 | DI.MG.S_ITS ---
BILATERAL DIGITAL SCREENING MAMMOGRAM 3D/2D WITH CAD: 02/04/2024 CLINICAL: Routine screening. Family history of breast cancer. Comparison is made to exams dated: 01/16/2023 mammogram, 01/14/2022 mammogram, and 11/07/2020 mammogram - [facility]. Both breasts are heterogeneously dense, which may obscure small masses (category c / 51-75% glandular tissue). Current study was also evaluated with a Computer Aided Detection (CAD) system. No significant masses, calcifications, or other findings are seen in either breast. There has been no significant interval change. IMPRESSION: NEGATIVE There is no mammographic evidence of malignancy. A 1 year screening mammogram is recommended. Based on Tyrer-Cuzick model (a risk assessment model), the patient's lifetime risk is 25.5% and her 10 year risk is 5.1%. If a patient has an elevated risk, a more comprehensive evaluation should be considered and/or a referral to a genetic counselor. The [place] [employer], [employer], and NCCN Guidelines advise the consideration of Breast MRI as an adjunct to screening mammography in patients whose Lifetime risk to develop breast cancer is 20% or higher. This exam was interpreted at Station ID: [id number]. NOTE: For mammograms, a report in lay terms will be sent to the patient. Approximately 15% of breast malignancies will not be visualized mammographically. In the management of a palpable breast mass, a negative mammogram must not discourage biopsy of a clinically suspicious lesion. Electronically Signed By: Chayo Mendieta M.D., Ph.D. valentino/jessica:02/05/2024 09:36:57 letter sent: Normal Exam ACR BI-RADS Category 1: Negative 3341F
== END ==
PROVIDERS: Family Provider Family Medicine; PCP Family Medicine; Referring Provider Family Medicine; Visit Provider Family Medicine
DX: Z12.31 Encounter for screening mammogram for malignant neoplasm of breast (principal); Z80.3 Family history of malignant neoplasm of breast; R92.333 Mammographic heterogeneous density, bilateral breasts
CPT/HCPCS: 77063; 77067

== ENCOUNTER 2024-06-29 08:41 | Day surgery (SDC) | payer OTHER, SELFPAY ==
[2024-06-29 09:43] VITALS: BP 120/74; PULSE 81; RESP 18; TEMP 36.1; O2SAT 99
[2024-06-29] MEDS: SODIUM CHLORIDE 0.9% 1,000 ML 84 ML IV (09:51)
[2024-06-29] MEDS: FAMOTIDINE 20 MG/2 ML VIAL IV (09:54)
--- NOTE | 2024-06-29 10:09 | PM.HP.1 ---
History of Present Illness History of Present Illness Date Patient Seen: 06/29/24 Time Patient Seen: 10:09 Chief complaint: Screening Colonoscopy Narrative: 44-year-old woman here for 1st time screening colonoscopy. No family history of colon cancer. Had a difficult prep with a lot of nausea and emesis but otherwise no abdominal issues. [facility] Medical History Hx of iron deficiency anemia History of depression History of anxiety Hx of headache Social History Smoking Status: Never smoker alcohol intake: current Meds Home Medications and Allergies Home Medications Medication Instructions Recorded Confirmed Type citalopram 20 mg tablet 20 mg PO DAILY 06/29/24 06/29/24 History Allergies Allergy/AdvReac Type Severity Reaction Status Date / Time No Known Allergies Allergy Verified 05/21/23 17:40 Exam Vital Signs (past 8 hours): - 06/29/24 09:43 Temperature 97.0 F L Pulse Rate 81 Respiratory Rate 18 Blood Pressure 120/74 Pulse Oximetry 99 Oxygen Delivery Method Room Air Oxygen Delivery Method Room Air Narrative Exam Narrative: General adult woman alert oriented no acute distress Chest nonlabored respiration Extremities warm well perfused Assessment & Plan Assessment & Plan narrative: The patient requires colorectal screening and colonoscopy is recommended. Technical details were discussed. Risks, benefits, alternatives explained. Risks including but not limited to myocardial infarction, aspiration, bleeding, pain, missed lesion, incomplete examination, need for further radiographic studies, intestinal injury, and need for major abdominal surgery were discussed. All questions were answered to their satisfaction, and they are in agreement with this plan. Time-Based Coding :: [TOTAL MINUTES] spent with patient and on the chart (including review of chart, obtaining history, exam, reviewing outside data, placing orders, documenting exam and treatment plan, and counseling patient) on [DATE].
--- NOTE | 2024-06-29 10:22 | P.OP.COLON_ITS ---
Operative Date/Time/Diagnoses Date of procedure: 06/29/24 Time of procedure: 10:22 Pre-op diagnosis: Colorectal screening Procedure & Clinicians Study performed: Screening colonoscopy Same procedure as scheduled: Yes Indications: Colorectal screening Surgeon: Rafael Webster Procedure Notes Procedure in detail: The history and physical was performed/updated and the patient is ASA class is 2. The procedure was discussed in detail with the patient. Potential risks co mplications including infection, bleeding, missed diagnosis, perforation, need for surgery, and were explained. Their questions were answered and informed consent was obtained. Patient was brought to the procedure room and placed standard monitoring equipment. The patient's vital signs were monitored continuously throughout the entire procedure. Prior to starting time-out was performed. The patient was placed in the left lateral recumbent position. Procedural sedation was administered by anesthesia. Examination began with a thorough inspection of the perianal area there was no evidence of fissures, fistulae, external hemorrhoids or cutaneous malignancy. The colonoscopy scope was then placed into the anal canal and was advanced to the cecum, which was identified by the ileocecal valve, the appendiceal orifice and the confluence of the taenia. The scope was then slowly withdrawn examining colon thoroughly in all directions, irrigating it of any residual stool. The scope was retroflexed within the rectum The patient tolerated the procedure well. They will be discharged once criteria are met. The prep was of good/excellent quality. The withdrawl time was 7 minutes. FINDINGS * Unremarkable colonoscopy. Normal healthy colonic mucosa without mass or polyps. * Internal hemorrhoids Specimen(s): none sent Impression: Normal colonoscopy Post-procedure Recommendations: Colonoscopy in 10 years Disposition: same day surgery
[2024-06-29 10:41] VITALS: BP 96/53; PULSE 82; RESP 12; TEMP 36.6; O2SAT 100
[2024-06-29 10:46] VITALS: BP 104/66; PULSE 77; RESP 18; O2SAT 100
== END 2024-06-29 11:23 | disposition home or self-care (01) ==
PROVIDERS: Family Provider Family Medicine; PCP Family Medicine; Referring Provider Surgery; Visit Provider Surgery
PROC: 0DJD8ZZ Inspection of Lower Intestinal Tract, Via Natural or Artificial Opening Endoscopic (ICD-10-PCS; CPT 45378; principal; 2024-06-29 10:45)
DX: Z12.11 Encounter for screening for malignant neoplasm of colon (principal); K64.8 Other hemorrhoids
CPT/HCPCS: 45378; 81025; J2704